=== PATIENT | male | born 1985 | race Caucasian/White ===

== ENCOUNTER 2017-01-03 10:52 | Emergency (ER) | payer BC ==
[2017-01-03] MEDS ORDERED: Ondansetron 4 MG/2 ML SDV IVPUSH ONE (11:29)
[2017-01-03] MEDS ORDERED: Sodium Chloride 0.9% 1,000 ML IV ONE ×2 (11:29→14:03)
[2017-01-03] MEDS ORDERED: Sodium Chloride 0.9% 10 ML Syringe FLUSH PRN (11:29)
[2017-01-03] MEDS ORDERED: LORazepam 2 MG/ML MDV IVPUSH ONE (11:29)
--- NOTE | 2017-01-03 11:37 | EDM.PDOC ---
ED HPI GENERAL MEDICAL PROBLEM - General Stated Complaint: DIZZINESS,SOB,VOMITING/FAMILY HX OF HEART ISSUES Time Seen by Provider: 01/03/17 11:12 Source of Information: Reports: Patient History Limitations: Reports: No Limitations - History of Present Illness INITIAL COMMENTS - FREE TEXT/NARRATIVE: Patient is a 31-year-old male with history of hypertension who presents to the ED complaining of dizziness that started approximately 7:00 last night. Nausea/ vomiting with one episode of emesis started last night approximately 11:00. He' s had some intermittent abdominal discomfort described as a crampy sensation. Dizziness comes and goes with no definitive precipitating factors. States he's had intermittent shortness of breath with exertion. States 2 weeks ago was exposed to a coworker with the flu.. He's had one episode of emesis. No blood present. Currently does not have any chest pain, dizziness, sob, dysuria, abdominal pain, palpitations, or any additional complaints. He is concerned this is related to his heart. States his dad was diagnosed with heart disease at the age of 31. Patient does have history of smoking, hypertension, unknown if he has hypercholesteremia. Patient does not exercise routinely and eats a poor diet. He's had no recent upper expiratory infection symptoms, trauma to his head, or hearing loss. Is currently on no medications. Denies any history of DVT/PE. - Related Data Allergies Allergy/AdvReac Type Severity Reaction Status Date / Time iodine Allergy Anaphylactic Verified 01/03/17 11:05 Shock Home Meds: Home Meds . [No Known Home Meds] 01/03/17 [History] Past Medical History Cardiovascular History: Reports: High Cholesterol, Hypertension Musculoskeletal History: Reports: Other (See Below) Other Musculoskeletal History: Acl Replacement Neurological History: Reports: Concussion Psychiatric History: Reports: ADD, ADHD - Past Surgical History HEENT Surgical History: Reports: Oral Surgery Male Surgical History: Reports: Vasectomy Social & Family History - Family History Cardiac: Reports: [place] Other Cardiac Family History: Father at 56, ghrandfather and greatgrandfather Endocrine/Metabolic: Reports: Diabetes, type II - Tobacco Use Smoking Status *Q: Former Smoker Used Tobacco, but Quit: Yes Month Tobacco Last Used: 18 - Caffeine Use Caffeine Use: Reports: Energy Drinks - Recreational Drug Use Recreational Drug Use: No ED ROS GENERAL - Review of Systems Review Of Systems: ROS reveals no pertinent complaints other than HPI. ED EXAM, GENERAL - Physical Exam Exam: See Below Exam Limited By: No Limitations General Appearance: Alert, WD/WN, Anxious Eye Exam: Bilateral Eye: PERRL Ears: Hearing Grossly Normal Nose: Normal Inspection Throat/Mouth: Normal Inspection, Normal Oropharynx, Normal Voice, No Airway Compromise Neck: Normal Inspection, Supple, Non-Tender Respiratory/Chest: No Respiratory Distress, Lungs Clear, Normal Breath Sounds, No Accessory Muscle Use, Chest Non-Tender Cardiovascular: Normal Peripheral Pulses, No Murmur, Tachycardia Peripheral Pulses: 2+: Radial (L), Radial (R) GI/Abdominal: Normal Bowel Sounds, Soft, Non-Tender, No Organomegaly, No Distention Extremities: Normal Inspection, Non-Tender, No Pedal Edema Neurological: Alert, Oriented, CN II-XII Intact Psychiatric: Normal Affect, Normal Mood Skin Exam: Warm, Dry, Intact, Normal Color Course - Vital Signs Last Recorded V/S: Last Vital Signs Temp 97.2 F 01/03/17 10:59 Pulse 130 H 01/03/17 10:59 Resp 16 01/03/17 10:59 BP 145/96 H 01/03/17 10:59 Pulse Ox 99 01/03/17 10:59 Orthostatic Blood Pressure [ 139/99 Standing] Orthostatic Blood Pressure [ 145/108 Sitting] Orthostatic Blood Pressure [ 140/93 Supine] - Orders/Labs/Meds Orders: Active Orders 24 hr Category Date Time Status EKG Documentation Completion [RC] STAT Care 01/03/17 11:29 Active Holter Monitor 48 Hours [RC] .PRN Care 01/03/17 14:30 Active Peripheral IV Care [RC] . DIRECTED Care 01/03/17 11:30 Active Peripheral IV Insertion Adult [OM.PC] Stat Oth 01/03/17 11:29 Ordered Labs: Laboratory Tests 01/03/17 01/03/17 01/03/17 Range/Units 11:11 11:11 11:11 WBC 10.22 H (4.23-9.07) K/mm3 RBC 5.55 (4.63-6.08) M/mm3 Hgb 15.7 (13.7-17.5) gm/L Hct 46.1 (40.1-51.0) % MCV 83.1 (79.0-92.2) fl MCH 28.3 (25.7-32.2) pg MCHC 34.1 (32.2-35.5) g/dl RDW Std Deviation 41.7 (35.1-43.9) fL Plt Count 336 (163-337) K/mm3 MPV 10.9 (9.4-12.3) fl Neut % (Auto) 67.0 (34.0-67.9) % Lymph % (Auto) 25.7 (21.8-53.1) % Andrews % (Auto) 6.8 (5.3-12.2) % Eos % (Auto) 0 L (0.8-7.0) Baso % (Auto) 0.4 (0.1-1.2) % Neut # (Auto) 6.85 H (1.78-5.38) K/mm3 Lymph # (Auto) 2.63 (1.32-3.57) K/mm3 Andrews # (Auto) 0.69 (0.30-0.82) K/mm3 Eos # (Auto) 0.00 L (0.04-0.54) K/mm3 Baso # (Auto) 0.04 (0.01-0.08) K/mm3 D-Dimer, Quantitative < 0.19 L (0.19-0.59) mg/L Sodium 142 (136-145) mEq/L Potassium 3.7 (3.5-5.1) mEq/L Chloride 102 (98-107) mEq/L Carbon Dioxide 24 (21-32) mEq/L Anion Gap 19.7 H (5-15) BUN 14 (7-18) mg/dL Creatinine 1.1 (0.7-1.3) mg/dL Est Cr Clr Drug Dosing 92.64 mL/min Estimated GFR (MDRD) > 60 (>60) mL/min BUN/Creatinine Ratio 12.7 L (14-18) Glucose 114 H (74-106) mg/dL Calcium 9.6 (8.5-10.1) mg/dL Total Bilirubin 0.7 (0.2-1.0) mg/dL AST 30 (15-37) U/L ALT 72 H (16-63) U/L Alkaline Phosphatase 66 (46-116) U/L Troponin I < 0.017 (0.00-0.056) ng/mL C-Reactive Protein 1.1 H* (<1.0) mg/dL Total Protein 9.0 H (6.4-8.2) g/dl Albumin 4.4 (3.4-5.0) g/dl Globulin 4.6 gm/dL Albumin/Globulin Ratio 1.0 (1-2) TSH 3rd Generation 1.394 (0.358-3.74) uIU/mL Urine Color (Yellow) Urine Appearance (Clear) Urine pH (5.0-8.0) Ur Specific [place] (1.005-1.030) Urine Protein (Negative) Urine Glucose (UA) (Negative) Urine Ketones (Negative) Urine Occult Blood (Negative) Urine Nitrite (Negative) Urine Bilirubin (Negative) Urine Urobilinogen (0.2-1.0) Ur Leukocyte Esterase (Negative) Urine RBC (0-5) /hpf Urine WBC (0-5) /hpf Ur Epithelial Cells (0-5) /hpf Urine Bacteria (FEW) /hpf Urine Mucus (FEW) /hpf Urine Opiates Screen (NEGATIVE) Ur Buprenorphine Scrn (NEGATIVE) Ur Oxycodone Screen (NEGATIVE) Urine Methadone Screen (NEGATIVE) Ur Propoxyphene Screen (NEGATIVE) Ur Barbiturates Screen (NEGATIVE) Ur Tricyclics Screen (NEGATIVE) Ur Phencyclidine Scrn (NEGATIVE) Ur Amphetamine Screen (NEGATIVE) U Methamphetamines Scrn (NEGATIVE) U Benzodiazepines Scrn (NEGATIVE) U Cocaine Metab Screen (NEGATIVE) U Marijuana (THC) Screen (NEGATIVE) 01/03/17 01/03/17 Range/Units 12:58 12:58 WBC (4.23-9.07) K/mm3 RBC (4.63-6.08) M/mm3 Hgb (13.7-17.5) gm/L Hct (40.1-51.0) % MCV (79.0-92.2) fl MCH (25.7-32.2) pg MCHC (32.2-35.5) g/dl RDW Std Deviation (35.1-43.9) fL Plt Count (163-337) K/mm3 MPV (9.4-12.3) fl Neut % (Auto) (34.0-67.9) % Lymph % (Auto) (21.8-53.1) % Andrews % (Auto) (5.3-12.2) % Eos % (Auto) (0.8-7.0) Baso % (Auto) (0.1-1.2) % Neut # (Auto) (1.78-5.38) K/mm3 Lymph # (Auto) (1.32-3.57) K/mm3 Andrews # (Auto) (0.30-0.82) K/mm3 Eos # (Auto) (0.04-0.54) K/mm3 Baso # (Auto) (0.01-0.08) K/mm3 D-Dimer, Quantitative (0.19-0.59) mg/L Sodium (136-145) mEq/L Potassium (3.5-5.1) mEq/L Chloride (98-107) mEq/L Carbon Dioxide (21-32) mEq/L Anion Gap (5-15) BUN (7-18) mg/dL Creatinine (0.7-1.3) mg/dL Est Cr Clr Drug Dosing mL/min Estimated GFR (MDRD) (>60) mL/min BUN/Creatinine Ratio (14-18) Glucose (74-106) mg/dL Calcium (8.5-10.1) mg/dL Total Bilirubin (0.2-1.0) mg/dL AST (15-37) U/L ALT (16-63) U/L Alkaline Phosphatase (46-116) U/L Troponin I (0.00-0.056) ng/mL C-Reactive Protein (<1.0) mg/dL Total Protein (6.4-8.2) g/dl Albumin (3.4-5.0) g/dl Globulin gm/dL Albumin/Globulin Ratio (1-2) TSH 3rd Generation (0.358-3.74) uIU/mL Urine Color Yellow (Yellow) Urine Appearance Clear (Clear) Urine pH 6.0 (5.0-8.0) Ur Specific [place] 1.025 (1.005-1.030) Urine Protein Negative (Negative) Urine Glucose (UA) Negative (Negative) Urine Ketones Negative (Negative) Urine Occult Blood Negative (Negative) Urine Nitrite Negative (Negative) Urine Bilirubin Negative (Negative) Urine Urobilinogen 0.2 (0.2-1.0) Ur Leukocyte Esterase Negative (Negative) Urine RBC 0-5 (0-5) /hpf Urine WBC 0-5 (0-5) /hpf Ur Epithelial Cells 0-5 (0-5) /hpf Urine Bacteria Few (FEW) /hpf Urine Mucus Few (FEW) /hpf Urine Opiates Screen Negative (NEGATIVE) Ur Buprenorphine Scrn Negative (NEGATIVE) Ur Oxycodone Screen Negative (NEGATIVE) Urine Methadone Screen Negative (NEGATIVE) Ur Propoxyphene Screen Negative (NEGATIVE) Ur Barbiturates Screen Negative (NEGATIVE) Ur Tricyclics Screen Negative (NEGATIVE) Ur Phencyclidine Scrn Negative (NEGATIVE) Ur Amphetamine Screen Negative (NEGATIVE) U Methamphetamines Scrn Negative (NEGATIVE) U Benzodiazepines Scrn Negative (NEGATIVE) U Cocaine Metab Screen Negative (NEGATIVE) U Marijuana (THC) Screen Negative (NEGATIVE) Meds: Medications Discontinued Medications Generic Name Dose Route Start Last Admin Trade Name Freq PRN Reason Stop Dose Admin Sodium Chloride 1,000 mls @ 999 mls/hr 01/03/17 11:29 01/03/17 11:44 Normal Saline IV 01/03/17 12:29 999 mls/hr ONETIME ONE Administration Sodium Chloride 1,000 mls @ 999 mls/hr 01/03/17 14:03 01/03/17 14:30 Normal Saline IV 01/03/17 15:03 Not Given ONETIME ONE Lorazepam 0.5 mg 01/03/17 11:29 01/03/17 11:48 Ativan IVPUSH 01/03/17 11:30 0.5 mg ONETIME ONE Administration Ondansetron HCl 4 mg 01/03/17 11:29 01/03/17 11:46 Zofran IVPUSH 01/03/17 11:30 4 mg ONETIME ONE Administration Sodium Chloride 10 ml 01/03/17 11:29 01/03/17 11:40 Saline Flush FLUSH 10 ml ASDIRECTED PRN Administration Keep Vein Open - Re-Assessments/Exams Free Text/Narrative Re-Assessment/Exam: IV established with normal saline, Ativan 0.5 mg IVP, and Zofran 4 mg IVP. Initial labs and studies include CBC, chem 14, troponin, TSH, UA, CRP, chest x- ray one view, EKG, and orthostatic vitals. EKG sinus tachycardia rate of [address] changes noted. Chest x-ray did not reveal any acute abnormalities. Reviewed with Dr. Escudero. Final interpretation pending 01/03/17 12:29 Labs reviewed: Sodium 142, potassium 3.7, AG 19.7, BUN 14, creatinine 1.1, glucose 114, AST 30, ALT 72, troponin less than 0.017, CRP 1.1, TSH is 1.394, white blood cell count 10.22, hemoglobin 15.7, platelet count 336. Orthostatic vitals: Minimal findings 1317 Reassessment: Dizziness has resolved. Patient remains tachycardic. BP has slightly improved. He offers no complaints this time. Will order a d-dimer. Unclear why he is tachycardic. he is Not dehydrated and is in no acute distress. 01/03/17 14:03 DDimer negative. Ordered additional liter of fluid. Orthostatics will be rechecked as well. 01/03/17 15:00 reassessment, patient resting comfortably in bed. Remains tachycardic 117. No symptoms. Unclear etiology of sinus tachycardia. May be related to white coat syndrome. 48 hour Holter monitor ordered. He will follow- up with Dr. Ulloa this coming Tuesday to discuss results of Holter monitor and reassess for hypertension. Patient was instructed to refrain from any stimulants including: Caffeine, energy drinks, tobacco products, or recreational drugs. 1 Departure - Departure Time of Disposition: 15:24 Disposition: Home, Self-Care 01 Condition: Good Clinical Impression: Sinus tachycardia by electrocardiogram, Episode of dizziness Instructions: Sinus Tachycardia, Dizziness, [id number] Referrals: Brooks Ramirez [Physician] - Forms: ED Department Discharge, ED Return to Work/School Form Additional Instructions: As discussed unclear why your heart rate is elevated. This may be associated with white coat syndrome and/or other etiology. At this point we'll place a Holter monitor for 48 hours. Please return it promptly as instructed. See Dr. Ulloa this coming Tuesday at 2:30 to discuss results of Holter monitor and recheck for hypertension. Refrain from any activities that cause worsening dizziness. With body position changes please take your time. He become dizzy sip back down allowing herself to equalize. Push the fluids. Ensure adequate rest. Eat a balanced diet. Refrain from any stimulants as discussed. - My Orders Last 24 Hours: My Active Orders 01/03/17 11:29 EKG Documentation Completion [RC] STAT Peripheral IV Insertion Adult [OM.PC] Stat 01/03/17 11:30 Peripheral IV Care [RC] . DIRECTED 01/03/17 14:30 Holter Monitor 48 Hours [RC] .PRN - Assessment/Plan Last 24 Hours: My Active Orders 01/03/17 11:29 EKG Documentation Completion [RC] STAT Peripheral IV Insertion Adult [OM.PC] Stat 01/03/17 11:30 Peripheral IV Care [RC] . DIRECTED 01/03/17 14:30 Holter Monitor 48 Hours [RC] .PRN
--- NOTE | 2017-01-03 14:05 | CR ---
Chest: Portable view of the chest was obtained. Comparison: No prior study. Heart has a mild left ventricular configuration. Upper mediastinum is normal. Lungs are clear. Bony structures are grossly intact. Impression: 1. Left ventricular configuration to the heart. 2. Nothing acute is otherwise seen on portable chest x-ray. Diagnostic code #2
== END 2017-01-03 16:15 | disposition home or self-care (01) ==
LOC: JD.ED 10:52
DX: R00.0 Tachycardia, unspecified (principal); E78.00 Pure hypercholesterolemia, unspecified; I10 Essential (primary) hypertension; Z91.09 Other allergy status, other than to drugs and biological substances; Z87.891 Personal history of nicotine dependence
CPT/HCPCS: 36415; 71010; 80053; 80306; 81001; 84443; 84484; 85025; 85379; 86140; 93005; 93225; 93226; 96361; 96374; 96375; 99284; J2060; J2405; J7040; J7050; 99285

== ENCOUNTER 2017-01-04 12:14 | Emergency (ER) | payer BC ==
[2017-01-04] MEDS ORDERED: Sodium Chloride 0.9% 10 ML Syringe FLUSH PRN (13:12)
[2017-01-04] MEDS ORDERED: Acetaminophen 325 MG Tab PO ONE (13:17)
--- NOTE | 2017-01-04 13:21 | EDM.PDOC ---
ED HPI GENERAL MEDICAL PROBLEM - General Chief Complaint: Neurological Problem Stated Complaint: DIZZINESS GETTING WORSE Time Seen by Provider: 01/04/17 12:55 Source of Information: Reports: Patient History Limitations: Reports: No Limitations - History of Present Illness INITIAL COMMENTS - FREE TEXT/NARRATIVE: Patient is a 31 year old male who presents to the E.D. complaining of worsening dizziness. States since being discharged from the E.D. his nausea has worsened. States with attempting to drink fluids he has vomited. Fluid intake has been poor. States he attempted to go to work but with worsening dizziness had to return to the E.D. Currently has dizziness with standing. No sensation he is going to pass out. Has permanent sensation of blowing up balloons to quickly. In addition has noted generalized body aches with mild stiff neck (lateral). Does not have any change in range of motion to the neck noted. Currently does not have any chest pain,with laying dizziness, sob, dysuria, abdominal pain , palpitations, or any additional complaints. - Related Data Allergies Allergy/AdvReac Type Severity Reaction Status Date / Time iodine Allergy Anaphylactic Verified 01/03/17 11:05 Shock Home Meds: Home Meds Ondansetron [Zofran ODT] 4 mg PO Q6H PRN #12 tab.dis 01/04/17 [Rx] Past Medical History Cardiovascular History: Reports: High Cholesterol, Hypertension Musculoskeletal History: Reports: Other (See Below) Other Musculoskeletal History: Acl Replacement Neurological History: Reports: Concussion Psychiatric History: Reports: ADD, ADHD - Past Surgical History HEENT Surgical History: Reports: Oral Surgery Male Surgical History: Reports: Vasectomy Social & Family History - Family History Family Medical History: Noncontributory Cardiac: Reports: [place] Other Cardiac Family History: Father at 56, ghrandfather and greatgrandfather Endocrine/Metabolic: Reports: Diabetes, type II - Tobacco Use Smoking Status *Q: Unknown Ever Smoked Used Tobacco, but Quit: Yes Month Tobacco Last Used: 18 - Caffeine Use Caffeine Use: Reports: Coffee - Recreational Drug Use Recreational Drug Use: No ED ROS GENERAL - Review of Systems Review Of Systems: See Below Constitutional: Reports: Fever, Malaise, Fatigue, Decreased Appetite HEENT: Reports: Vision Change (Intermittent double vision). Denies: Ear Pain, Eye Pain, Rhinitis, Throat Pain, Throat Swelling Respiratory: Denies: Shortness of Breath, Wheezing, Pleuritic Chest Pain, Cough Cardiovascular: Denies: Chest Pain, Dyspnea on Exertion, Lightheadedness, Palpitations, Syncope GI/Abdominal: Reports: Decreased Appetite, Nausea, Vomiting. Denies: Abdominal Pain, Constipation, Diarrhea, Distension, Flatus, Melena : Reports: No Symptoms Musculoskeletal: Reports: Neck Pain (Mild neck stiffness continues to have full range of motion) Skin: Denies: Rash Neurological: Reports: Dizziness (Intermittent with body position changes), Headache. Denies: Confusion, Numbness (Mild in nature), Syncope, Tingling, Difficulty Walking, Weakness ED EXAM, GENERAL - Physical Exam Exam: See Below Exam Limited By: No Limitations General Appearance: Alert, WD/WN, No Apparent Distress Eye Exam: Bilateral Eye: EOMI, Nystagmus (None noted), PERRL Ears: Normal External Exam, Normal Canal, Hearing Grossly Normal, Normal TMs Nose: Normal Inspection, Normal Mucosa, No Blood Throat/Mouth: Normal Inspection, Normal Oropharynx, Normal Voice, No Airway Compromise Neck: Normal Inspection, Supple, Non-Tender. No: Lymphadenopathy (L), Lymphadenopathy (R) Respiratory/Chest: No Respiratory Distress, Lungs Clear, Normal Breath Sounds, No Accessory Muscle Use, Chest Non-Tender Cardiovascular: Normal Peripheral Pulses, No Murmur, Tachycardia Peripheral Pulses: 2+: Radial (L) GI/Abdominal: Normal Bowel Sounds, Soft, Non-Tender, No Organomegaly, No Distention Back Exam: Normal Inspection Extremities: Normal Inspection, Normal Range of Motion, Non-Tender, No Pedal Edema, Normal Capillary Refill Neurological: Alert, Oriented, CN II-XII Intact, Normal Cognition, No Motor/ Sensory Deficits Psychiatric: Normal Affect, Normal Mood Skin Exam: Warm, Dry, No Rash, Increased Warmth Course - Vital Signs Last Recorded V/S: Last Vital Signs Temp 99.5 F 01/04/17 14:42 Pulse 139 H 01/04/17 12:20 Resp 18 01/04/17 12:20 BP 128/78 01/04/17 12:20 Pulse Ox 97 01/04/17 12:20 Orthostatic Blood Pressure [ 129/81 Standing] Orthostatic Blood Pressure [ 140/87 Sitting] Orthostatic Blood Pressure [ 117/72 Supine] - Orders/Labs/Meds Labs: Laboratory Tests 01/04/17 01/04/1701/04/17 Range/Units 13:30 13:30 13:45 WBC 10.16 H (4.23-9.07) K/mm3 RBC 5.53 (4.63-6.08) M/mm3 Hgb 15.8 (13.7-17.5) gm/L Hct 46.1 (40.1-51.0) % MCV 83.4 (79.0-92.2) fl MCH 28.6 (25.7-32.2) pg MCHC 34.3 (32.2-35.5) g/dl RDW Std Deviation 41.1 (35.1-43.9) fL Plt Count 333 (163-337) K/mm3 MPV 10.5 (9.4-12.3) fl Neut % (Auto) 59.7 (34.0-67.9) % Lymph % (Auto) 31.1 (21.8-53.1) % [place] % (Auto) 8.6 (5.3-12.2) % Eos % (Auto) 0 L (0.8-7.0) Baso % (Auto) 0.3 (0.1-1.2) % Neut # (Auto) 6.07 H (1.78-5.38) K/mm3 Lymph # (Auto) 3.16 (1.32-3.57) K/mm3 [place] # (Auto) 0.87 H (0.30-0.82) K/mm3 Eos # (Auto) 0.00 L (0.04-0.54) K/mm3 Baso # (Auto) 0.03 (0.01-0.08) K/mm3 Manual Slide Review Normal smear Sodium 140 (136-145) mEq/L Potassium 3.8 (3.5-5.1) mEq/L Chloride 101 (98-107) mEq/L Carbon Dioxide 24 (21-32) mEq/L Anion Gap 18.8 H (5-15) BUN 14 (7-18) mg/dL Creatinine 1.3 (0.7-1.3) mg/dL Est Cr Clr Drug Dosing 78.39 mL/min Estimated GFR (MDRD) > 60 (>60) mL/min BUN/Creatinine Ratio 10.8 L (14-18) Glucose 99 (74-106) mg/dL Calcium 9.7 (8.5-10.1) mg/dL Total Bilirubin 0.8 (0.2-1.0) mg/dL AST 24 (15-37) U/L ALT 58 (16-63) U/L Alkaline Phosphatase 62 (46-116) U/L C-Reactive Protein 0.8 (<1.0) mg/dL Total Protein 8.9 H (6.4-8.2) g/dl Albumin 4.3 (3.4-5.0) g/dl Globulin 4.6 gm/dL Albumin/Globulin Ratio 0.9 L (1-2) Lipase 108 (73-393) U/L Urine Color Yellow (Yellow) Urine Appearance Clear (Clear) Urine pH 7.0 (5.0-8.0) Ur Specific [place] 1.025 (1.005-1.030) Urine Protein 1+ H (Negative) Urine Glucose (UA) Negative (Negative) Urine Ketones Negative (Negative) Urine Occult Blood Negative (Negative) Urine Nitrite Negative (Negative) Urine Bilirubin Negative (Negative) Urine Urobilinogen 0.2 (0.2-1.0) Ur Leukocyte Esterase Negative (Negative) Urine RBC 0-5 (0-5) /hpf Urine WBC 0-5 (0-5) /hpf Ur Epithelial Cells 0-5 (0-5) /hpf Urine Bacteria Few (FEW) /hpf Urine Mucus Moderate H (FEW) /hpf Meds: Medications Discontinued Medications Generic Name Dose Route Start Last Admin Trade Name Freq PRN Reason Stop Dose Admin Acetaminophen 975 mg 01/04/17 13:17 01/04/17 13:33 Tylenol PO 01/04/17 13:18 975 mg NOW ONE Administration Sodium Chloride 3,000 mls @ 999 mls/hr 01/04/17 13:12 01/04/17 15:53 Normal Saline IV 01/04/17 16:12 999 mls/hr ONETIME ONE Administration Sodium Chloride Confirm 01/04/17 14:43 01/04/17 14:51 Normal Saline Administered 01/04/17 14:44 Not Given Dose 1,000 mls @ as directed .ROUTE .STK-MED ONE Sodium Chloride 10 ml 01/04/17 13:12 01/04/17 13:32 Saline Flush FLUSH 10 ml ASDIRECTED PRN Administration Keep Vein Open - Re-Assessments/Exams Free Text/Narrative Re-Assessment/Exam: IV established with and is fluid bolus and Tylenol 975 mg by mouth. Initial labs and studies include CBC, influenza, chem 14, CRP, blood cultures 2, lipase , UA, EKG, and orthostatic vital signs. EKG sinus tachycardia rate [address] changes noted. Labs reviewed: White blood cell count 10.16, hemoglobin 15.8, platelet count 333 , sodium 140, potassium 3.8, AG is 18.3, CO2 24, creatinine 1.3, glucose 99, CRP 0.8, lipase 108, TSH 1.394, and UA negative for infection. Have opted to order a x-ray of the abdomen flat and upright evaluate for gas and stool pattern. In addition CT of the head revealed nothing acute is identified on noncontrast head CT study. The first bag of fluids her in and the patient's heart rate is in the low 100s. Vital signs are stable. Temperature has improved. Additional 2 L of fluid are to be administered. X-ray of the abdomen reveals nonspecific air in stool patterns. No signs of obstruction. Final interpretations pending. 01/04/17 16:15 Reassessment, patient states he is feeling much better. The dizziness has resolved. Bowel sounds are stable. Heart rate has decreased into the middle 90s. Nausea has has subsided. Fluids still running then. Patient has urinated. With completion of fluids will ask us discharged home. 01/04/17 17:37 Fluids are in. Patient is feeling a lot better. Nausea subsided. He has been taking fluids with no vomiting or nausea. He is ready be discharged home. Discharge instructions as documented. Etiology of tachycardia and dizziness 2nd to volume depletion. Departure - Departure Time of Disposition: 17:38 Disposition: Home, Self-Care 01 Condition: Good Clinical Impression: Dehydration Fever Qualifiers: Fever type: unspecified Qualified Code(s): R50.9 - Fever, unspecified Nausea & vomiting Qualifiers: Vomiting type: unspecified Vomiting Intractability: non-intractable Qualified Code(s): R11.2 - Nausea with vomiting, unspecified Prescriptions: Ondansetron [Zofran ODT] 4 mg PO Q6H PRN #12 tab.dis PRN Reason: Nausea/Vomiting Instructions: Dehydration, Adult, [id number] Referrals: PCP,None [Primary Care Provider] - Forms: ED Department Discharge, ED Return to Work/School Form Additional Instructions: As discussed it appears your quite dehydrated. Tachycardia and dizziness resolved with IV fluids. Take the Zofran as prescribed for nausea and vomiting. Push the fluids. Stick with a liquid diet over the next 24 hours advancing to a bland diet for the next 24 hrs and then to a normal diet thereafter as tolerated. Keep appointment with Dr. Ulloa scheduled for this coming Tuesday for reevaluation. No work tomorrow. Return to ED for any new or worsening symptoms.
[2017-01-04] MEDS: Sodium Chloride 0.9% 3,000 ML IV ONE ×3 (13:32→15:53)
[2017-01-04] MEDS ORDERED: Sodium Chloride 0.9% 1,000 ML ONE (14:43)
--- NOTE | 2017-01-04 14:43 | CT ---
Head CT Technique: Multiple axial sections through the brain were obtained. Intravenous contrast was not utilized. Findings: Ventricles along with basal cisterns and sulci over the convexities appear within normal limits for the patient's age. No abnormal parenchymal densities are seen. No evidence of intracranial hemorrhage. No midline shift or mass effect is seen. Bone window settings were reviewed which shows no acute calvarial abnormality. Visualized sinuses are clear. Impression: 1. Nothing acute is identified on noncontrast head CT study. Diagnostic code #1
--- NOTE | 2017-01-05 08:15 | CR ---
Abdomen: Supine and upright views of the abdomen were obtained. Comparison: No previous study. Bowel gas pattern appears normal. No abnormal calcifications or soft tissue abnormality is seen. Bony structures are unremarkable. No abnormal calcifications or soft tissue abnormality is identified. Impression: 1. No abnormality is appreciated on two-view abdominal x-ray. Diagnostic code #1
== END 2017-01-04 17:57 | disposition home or self-care (01) ==
LOC: JD.ED 12:14
DX: E86.0 Dehydration (principal); R50.9 Fever, unspecified; E78.00 Pure hypercholesterolemia, unspecified; I10 Essential (primary) hypertension; Z88.8 Allergy status to other drugs, medicaments and biological substances
CPT/HCPCS: 36415; 70450; 74020; 80053; 81001; 83690; 85025; 86140; 87040; 87804; 93005; 96360; 96361; 99284; A9270; J7040; J7050

== ENCOUNTER 2018-12-13 09:42 | Emergency (ER) | payer BC ==
[2018-12-13] MEDS ORDERED: Sodium Chloride 0.9% 10 ML Syringe FLUSH PRN (10:04)
[2018-12-13] MEDS ORDERED: Ketorolac 60 MG/2 ML SDV IM ONE (11:00)
--- NOTE | 2018-12-13 11:16 | EDM.PDOC ---
ED HPI GENERAL MEDICAL PROBLEM - General Chief Complaint: Chest Pain Stated Complaint: CHEST PAIN Time Seen by Provider: 12/13/18 10:14 Source of Information: Reports: Patient, RN Notes Reviewed History Limitations: Reports: No Limitations - History of Present Illness INITIAL COMMENTS - FREE TEXT/NARRATIVE: Patient is a 33-year-old male who presents to the ED for the evaluation of intermittent chest pain. 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 The patient states that the pain is intermittent, however when the pain is present it is at a level of 7 out of 10. The patient states that the pain is sharp and stabbing in nature, and waxes and wanes. He does not really account anything that makes this better or worse. He did not take any medications to try to make this better. The patient states that before the chest pain started, he was cleaning his cement truck which involves climbing up and down the ladder multiple times and was carrying his aluminum chutes, which are roughly 25-30 pounds each. The patient states that he does have a primary care provider although he cannot remember the provider's name. He also complains of some mild neck tightness or stiffness, and tingling in his fingers. The patient states that he has an extensive family history of heart disease, and he himself is on high blood pressure medications and cholesterol lowering medications for prophylaxis of this. The patient states that he gets a little bit lightheaded from sitting to standing at times, has had a mild amount of nausea but nothing that is overly worrisome, no vomiting or diarrhea, mild shortness of breath with some of these pain attacks. He denies any started tearing sensation, or any palpitations, fevers or chills. Chest Pain Score (Numeric/FACES): 0 - Related Data Allergies Allergy/AdvReac Type Severity Reaction Status Date / Time iodine Allergy Anaphylactic Verified 12/13/18 09:55 Shock shellfish derived Allergy Anaphylactic Verified 12/13/18 09:55 Shock Home Meds: Home Meds Lisinopril [Zestril] 10 mg PO DAILY 12/13/18 [History] atorvaSTATin [Lipitor] 20 mg PO BEDTIME 12/13/18 [History] Past Medical History Cardiovascular History: Reports: High Cholesterol, Hypertension Musculoskeletal History: Reports: Other (See Below) Other Musculoskeletal History: Acl Replacement Neurological History: Reports: Concussion Psychiatric History: Reports: ADD, ADHD - Past Surgical History HEENT Surgical History: Reports: Oral Surgery Male Surgical History: Reports: Vasectomy Social & Family History - Family History Family Medical History: Noncontributory Cardiac: Reports: [place] Other Cardiac Family History: Father at 56, ghrandfather and greatgrandfather Endocrine/Metabolic: Reports: Diabetes, type II - Tobacco Use Smoking Status *Q: Never Smoker - Caffeine Use Caffeine Use: Reports: Coffee - Recreational Drug Use Recreational Drug Use: No ED ROS GENERAL - Review of Systems Review Of Systems: See Below Constitutional: Denies: Fever, Chills HEENT: Reports: No Symptoms Respiratory: Reports: Shortness of Breath. Denies: Cough Cardiovascular: Reports: Chest Pain (mid sternal sharp stabbing pain), Blood Pressure Problem (high blood pressure), Lightheadedness (mild). Denies: Edema, Palpitations Endocrine: Reports: No Symptoms GI/Abdominal: Reports: Nausea. Denies: Abdominal Pain, Constipation, Diarrhea, Vomiting Skin: Reports: No Symptoms Neurological: Reports: No Symptoms Psychiatric: Reports: No Symptoms Hematologic/Lymphatic: Reports: No Symptoms Immunologic: Reports: No Symptoms ED EXAM, GENERAL - Physical Exam Exam: See Below Exam Limited By: No Limitations General Appearance: Alert, WD/WN, No Apparent Distress Eye Exam: Bilateral Eye: Normal Inspection Throat/Mouth: Normal Inspection, Normal Lips, Normal Teeth, Normal Gums, Normal Oropharynx, Normal Voice, No Airway Compromise Head: Atraumatic, Normocephalic Neck: Normal Inspection, Supple, Tender Lateral (tender to palpation on L neck that travels down superior trapiezius) Respiratory/Chest: No Respiratory Distress, Lungs Clear, Normal Breath Sounds, No Accessory Muscle Use, Other (chest tender to palpation bilaterally on the anterior chest, the pain is reproducible) Cardiovascular: Normal Peripheral Pulses, Regular Rate, Rhythm, No Edema, No Murmur Peripheral Pulses: 3+: Radial (L), Radial (R) Extremities: Normal Inspection, Normal Capillary Refill Neurological: Alert, Oriented, Normal Cognition, No Motor/Sensory Deficits Psychiatric: Normal Affect, Normal Mood Skin Exam: Warm, Dry, Intact, Normal Color, No Rash EKG INTERPRETATION EKG Date: 09/25/19 Time: 09:54 Rhythm: NSR Rate (Beats/Min): 69 [place]: Normal P-Wave: Present QRS: Normal ST-T: Normal QT: Normal Comparison: NA - No Prior EKG EKG Interpretation Comments: No acute ischemic changes, T wave inversion in Lead III. Reviewed by myself and Dr. Cisneros. Course - Vital Signs Last Recorded V/S: Last Vital Signs Temp 97.4 F 12/13/18 09:59 Pulse 16 L 12/13/18 09:59 Resp 14 12/13/18 09:59 BP 129/74 12/13/18 09:59 Pulse Ox 99 12/13/18 09:59 - Orders/Labs/Meds Orders: Active Orders 24 hr Category Date Time Status EKG Documentation Completion [RC] STAT Care 12/13/18 09:58 Active Chest 1V Frontal [CR] Stat Exams 12/13/18 10:04 Taken Saline Lock Insert [OM.PC] Routine Oth 12/13/18 10:04 Ordered Labs: Laboratory Tests 12/13/18 12/13/18 Range/Units 10:20 10:20 WBC 6.70 (4.23-9.07) K/mm3 RBC 5.23 (4.63-6.08) M/mm3 Hgb 14.9 (13.7-17.5) gm/dl Hct 43.1 (40.1-51.0) % MCV 82.4 (79.0-92.2) fl MCH 28.5 (25.7-32.2) pg MCHC 34.6 (32.2-35.5) g/dl RDW Std Deviation 39.6 (35.1-43.9) fL Plt Count 302 (163-337) K/mm3 MPV 10.5 (9.4-12.3) fl Neut % (Auto) 51.3 (34.0-67.9) % Lymph % (Auto) 37.0 (21.8-53.1) % [facility] % (Auto) 8.1 (5.3-12.2) % Eos % (Auto) 3.0 (0.8-7.0) Baso % (Auto) 0.6 (0.1-1.2) % Neut # (Auto) 3.44 (1.78-5.38) K/mm3 Lymph # (Auto) 2.48 (1.32-3.57) K/mm3 [facility] # (Auto) 0.54 (0.30-0.82) K/mm3 Eos # (Auto) 0.20 (0.04-0.54) K/mm3 Baso # (Auto) 0.04 (0.01-0.08) K/mm3 Sodium 139 (136-145) mEq/L Potassium 4.0 (3.5-5.1) mEq/L Chloride 103 (98-107) mEq/L Carbon Dioxide 25 (21-32) mEq/L Anion Gap 15.0 (5-15) BUN 11 (7-18) mg/dL Creatinine 1.0 (0.7-1.3) mg/dL Est Cr Clr Drug Dosing 96.59 mL/min Estimated GFR (MDRD) > 60 (>60) mL/min BUN/Creatinine Ratio 11.0 L (14-18) Glucose 103 (74-106) mg/dL Calcium 9.3 (8.5-10.1) mg/dL Total Bilirubin 0.6 (0.2-1.0) mg/dL AST 24 (15-37) U/L ALT 60 (16-63) U/L Alkaline Phosphatase 67 (46-116) U/L Troponin I < 0.017 (0.00-0.056) ng/mL Total Protein 7.8 (6.4-8.2) g/dl Albumin 4.1 (3.4-5.0) g/dl Globulin 3.7 gm/dL Albumin/Globulin Ratio 1.1 (1-2) Meds: Medications Discontinued Medications Generic Name Dose Route Start Last Admin Trade Name Freq PRN Reason Stop Dose Admin Ketorolac Tromethamine 60 mg 12/13/18 11:00 12/13/18 11:36 Toradol IM 12/13/18 11:01 60 mg ONETIME ONE Administration Sodium Chloride 10 ml 12/13/18 10:04 Saline Flush FLUSH ASDIRECTED PRN Keep Vein Open - Re-Assessments/Exams Free Text/Narrative Re-Assessment/Exam: 12/13/18 10:40 Patient resents to the ED for the evaluation of intermittent chest pain. Due to his family history, the triage nurse did put in some standing orders to rule out any cardiac abnormality, on initial exam of the patient it is likely that his pain is more musculoskeletal in nature, I will wait for the labs to results to make sure there is no underlying cardiac etiology. 12/13/18 11:17 EKG is within normal limits no acute ischemic changes noted, all other labs are also within normal limits. At this time and did order 60 mg IM Toradol for initial management of suspected muscular strain. Departure - Departure Time of Disposition: 11:46 Disposition: Home, Self-Care 01 Condition: Fair Clinical Impression: Midsternal chest pain Chest wall muscle strain Qualifiers: Encounter type: initial encounter Qualified Code(s): S29.011A - Strain of muscle and tendon of front wall of thorax, initial encounter Instructions: Chest Wall Pain, [id number] Referrals: Laith Dixon PA-C [Primary Care Provider] - Forms: ED Department Discharge Additional Instructions: You were evaluated in the ED today for your chest pain. Your EKG and laboratory evaluation was within normal limits, there were no acute ischemic changes noted on the EKG today. Your cardiac workup was within normal limits. Your pain is most likely due to a chest muscle strain, treatment for this is ibuprofen or Tylenol every 6 hours as needed for further pain relief. Follow-up with her normal care provider in roughly 1 week's time if your symptoms are not getting much better. Please return to the ED if your symptoms change or worsen. - My Orders Last 24 Hours: My Active Orders 12/13/18 09:58 EKG Documentation Completion [RC] STAT 12/13/18 10:04 Chest 1V Frontal [CR] Stat Saline Lock Insert [OM.PC] Routine - Assessment/Plan Last 24 Hours: My Active Orders 12/13/18 09:58 EKG Documentation Completion [RC] STAT 12/13/18 10:04 Chest 1V Frontal [CR] Stat Saline Lock Insert [OM.PC] Routine
--- NOTE | 2018-12-14 07:03 | CR ---
Chest: Portable view of the chest was obtained. Comparison: Prior chest x-ray of 01/03/17. Heart has a left ventricular configuration and is felt to be slightly enlarged. Upper mediastinum is normal. Lungs are clear. Bony structures are grossly intact. Impression: 1. Heart has a left ventricular configuration. 2. Nothing acute is otherwise seen. Diagnostic code #2
== END 2018-12-13 11:59 | disposition home or self-care (01) ==
LOC: JD.ED 09:42
DX: S29.011A Strain of muscle and tendon of front wall of thorax, initial encounter (principal); I10 Essential (primary) hypertension; E78.00 Pure hypercholesterolemia, unspecified; Z91.013 Allergy to seafood; Z88.8 Allergy status to other drugs, medicaments and biological substances; Z79.899 Other long term (current) drug therapy; X50.0XXA Overexertion from strenuous movement or load, initial encounter; Y99.0 Civilian activity done for income or pay
CPT/HCPCS: 36415; 71045; 80053; 84484; 85025; 93005; 96372; 99285; J1885